=== PATIENT | male | born 1980 | race Caucasian/White ===

== ENCOUNTER 2020-06-14 16:53 | Outpatient (REF) | payer MEDICARE, MEDICAID, SELFPAY | END 2020-06-14 16:54 | disposition home or self-care (01) | LOC: HO.LAB 16:53 | PROVIDERS: Visit Provider Internal Medicine | DX: Z20.828 Contact with and (suspected) exposure to other viral communicable diseases (principal) | CPT/HCPCS: U0003 ==

== ENCOUNTER 2020-08-08 15:57 | Emergency (ER) | payer MEDICARE, MEDICAID, SELFPAY ==
--- NOTE | 2020-08-08 16:01 | PC.NURSE ---
pt from [facility]way, worker is with him and will need to be in room with patient.
--- NOTE | 2020-08-08 17:13 | PC.NURSE ---
[employer] with patient asked if he could take the patient to get dinner at a restaurant for something to do and come back and keep place in line instead of sitting in the ED waiting room waiting, this nurse told the worker that he could not leave the hospital to do this that he would have to re-check in. It was noted a short time later that the patient and caser shoe parts had left the waiting room.
== END 2020-08-08 18:13 | disposition left against medical advice (07) ==
PROVIDERS: Emergency Provider Emergency Medicine
DX: T76.21XA Adult sexual abuse, suspected, initial encounter (principal); X58.XXXA Exposure to other specified factors, initial encounter
CPT/HCPCS: 99281

== ENCOUNTER 2021-10-13 08:56 | Outpatient (REF) | payer MEDICARE, MEDICAID, SELFPAY ==
[2021-10-13 11:29] LABS: MANUAL DIFF FLAG NO
[2021-10-13 11:38] LABS: Basophils Percent Auto 0.4 % (0-2); Eosinophils Absolute Auto 0.1 X10*3/uL (0.0-0.4); Eosinophils Percent Auto 1.3 % (0-4); Hematocrit 44.6 % (42.0-52.0); Hemoglobin 14.7 g/dl (14.0-18.0); Imm Gran Abs Auto 0.02 X10*3/uL (0.00-0.03); Imm Gran Pct Auto 0.4 % (0.0-0.4); Lymphocytes Absolute Auto 1.5 X10*3/uL (1.2-4.9); Lymphocytes Percent Auto 27.3 % (20-40); Mean Corpuscular Hemoglobin 30.8 pg (27.0-33.0); Mean Corpuscular Volume 93.3 fL (80.0-98.0); Mean Platelet Volume 9.9 fL (9.4-12.4); Monocytes Absolute Auto 0.4 X10*3/uL (0.1-1.2); Neutrophils Absolute Auto 3.5 x10*3/uL (2.0-8.3); Neutrophils Percent Auto 62.6 % (45-73); Platelet Count 227 X10*3/uL (160-400); Red Blood Count 4.78 X10*6/uL (4.60-5.80); Red Cell Distribution Width 12.9 % (11.0-16.0); White Blood Count 5.5 X10*3/uL (4.8-10.8)
[2021-10-13 12:07] LABS: Estimated Average Glucose 100 mg/dL; Hemoglobin A1c % 5.1 %
[2021-10-13 12:09] LABS: Alanine Aminotransferase 11 U/L (0-40); Albumin Level 4.3 g/dL (3.5-5.0); Alkaline Phosphatase 119 U/L (39-117); Anion Gap 10 (12-20); Aspartate Amino Transferase 13 U/L (5-37); Bilirubin Total 0.4 mg/dL (0.0-1.0); Blood Urea Nitrogen 15 mg/dL (9-16); Calcium 9.4 mg/dL (8.4-10.2); Carbon Dioxide 28 mmol/L (22-29); Chloride 104 mmol/L (96-108); Estimated Glomerular Filt Rate > 60; Glucose Random 110 mg/dL (60-115); Potassium 4.3 mmol/L (3.3-5.1); Sodium 138 mmol/L (135-145)
[2021-10-13 12:11] LABS: TSH reflex Free T4 1.94 uIU/mL (0.32-4.0)
[2021-10-13 12:17] LABS: Vitamin B12 281 pg/mL (200-900)
[2021-10-14 05:32] LABS: LDL Cholesterol Direct 105 mg/dL (<100)
[2021-10-17 07:07] LABS: Vitamin D 25-OH, D2 <4 ng/mL; Vitamin D 25-OH, D3 18 ng/mL; Vitamin D 25-OH, Total 18 ng/mL (30-100)
== END 2021-10-13 08:57 | disposition home or self-care (01) ==
LOC: HO.HMGCLDS 08:56
PROVIDERS: Visit Provider Internal Medicine
DX: Z13.89 Encounter for screening for other disorder (principal)
CPT/HCPCS: 36415; 80053; 82306; 82607; 83036; 83721; 84443; 85025

== ENCOUNTER 2021-10-13 09:28 | Emergency (ER) | payer MEDICARE, MEDICAID, SELFPAY ==
[2021-10-13 09:29] VITALS: BP 129/88; PULSE 66; RESP 16; TEMP 35.9; O2SAT 100; BMI 22.8
--- NOTE | 2021-10-13 09:46 | ED_ITS ---
HPI - Psych General Chief Complaint: Psychiatric Symptoms Stated Complaint: Crisis Time Seen by Provider: 10/13/21 09:43 Source: patient Mode of arrival: ambulatory Limitations: no limitations History of Present Illness HPI Narrative: aunt reported not taking care of himself and then told triage that he is having innapropriate behaviors with young females complaint: feels depressed Onset (ago): month(s) Duration: getting worse History of same: Yes Relieving factors: none Exacerbating factors: none Associated psychiatric symptoms: depression Associated symptoms: denies other symptoms Treatments prior to arrival: none Related Data Previous Rx's Medication Instructions Recorded sertraline 25 mg tablet (Zoloft) 25 mg PO DAILY 90 Days #90 tab 10/13/21 Allergies Allergy/AdvReac Type Severity Reaction Status Date / Time bee pollen [BEE STINGS] Allergy Mild SWELLING Verified 10/13/21 08:17 pollen Allergy Unknown Unknown Uncoded 10/13/21 08:17 Review of Systems Review of Systems: Constitutional : No Fever, No Chills ENT/Mouth : No Ear Pain, No Nasal Congestion, No sore throat Eyes: No Eye Pain, No Swelling, No Redness Cardiovascular : No Chest Pain, No SOB Respiratory : No Cough, No Sputum, No Dyspnea Gastrointestinal : No Nausea, No Vomiting, No Diarrhea, No Hematochezia, No Melena Genitourinary : No Dysuria, No Urinary Frequency, No Hematuria Musculoskeletal : No Myalgias Skin : No Skin Lesions, No rash Neuro : No Weakness, No Numbness, No Paresthesias, No Dizziness, No Headache Psych : positive Anxiety, positive Depression, no SI/HI Heme/Lymph: No Lymphadenopathy Endocrine : No Polyuria, No Polydipsia All other systems reviewed and are negative [facility] Past Medical History Medical History Asthma Bipolar 1 disorder Depression Schizophrenia Smoker Surgical History History of foot surgery Family History Family History Father No problems noted. Mother No problems noted. Brother No problems noted. Sister No problems noted. Sister No problems noted. Sister No problems noted. Sister No problems noted. Other Substance use disorder Social History Social History Housing: House Alcohol intake: current Alcohol intake frequency: a few times a month Alcohol type: beer Patient Tobacco Use Status: Former Tobacco user Quit Date: 2019 Tobacco use type: Cigarette Use of substances other than those prescribed or required for medical reasons: No Advance Directives: No Advance Directives Information Provided: Yes Current occupational status: unemployed Physical Exam Vital Signs: Vital Signs: Last Vital Signs Temp 96.7 F L 10/13/21 09:29 Pulse 66 10/13/21 09:29 Resp 16 10/13/21 09:29 BP 129/88 10/13/21 09:29 Pulse Ox 100 10/13/21 09:29 BMI result Body Mass Index 22.8 Appearance: Alert. Oriented X3. No acute distress. Flat affect, withdrawn Eyes: Pupils equal, round and reactive to light. ENT: Pharynx normal. Neck: Normal inspection. Neck supple. CVS: Normal heart rate and rhythm. Pulses normal. Respiratory: No respiratory distress. Breath sounds normal. Abdomen: Soft and non-tender. Skin: Skin warm and dry. Normal skin color. Normal skin turgor. Extremities: No lower extremity edema. No calf ttp Neuro: Oriented X 3. No motor deficit. No sensory deficit. CN2-12 intact Course Course Course Narrative: Physician observation started at 1010am. Patient placed in physician observation because the patient needed more time for N to assess the need for inpatient psych admission. At the time observation was started the patient's vitals were stable, patient is alert and oriented but withdrawn, Neuro: nonfocal, CV RRR, Lungs clear Physician observation ended at 1250pm Patient seen and cleared by crisis. Plan is to follow up closely in urgent care follow up NAD, lungs clear, CV RRR, Abd nontender, Neuro intact. Disposition is for home. MDM - Psych MDM Narrative Medical decision making narrative: 41 yo male with hx of asthma, depression here with increased depression not taking care of himself, he is very withdrawn with me has no other complaints and not forthcoming. At this time labs and BHN consult ordered Lab Data Result diagrams: 10/13/21 10:02 10/13/21 10:02 Labs: Lab Results 10/13/21 10/13/21 10/13/21 Range/Units 09:58 10:02 10:02 WBC 5.6 (4.8-10.8) X10*3/uL RBC 4.67 (4.60-5.80) X10*6/uL Hgb 14.5 (14.0-18.0) g/dl Hct 43.2 (42.0-52.0) % MCV 92.5 (80.0-98.0) fL MCH 31.0 (27.0-33.0) pg MCHC 33.6 (31.0-36.0) g/dl RDW 13.0 (11.0-16.0) % Plt Count 215 (160-400) X10*3/uL MPV 9.2 L (9.4-12.4) fL Immature Gran % (Auto) 0.2 (0.0-0.4) % Neut % (Auto) 64.6 (45-73) % Lymph % (Auto) 25.4 (20-40) % [place] % (Auto) 8.4 (2-11) % Eos % (Auto) 0.9 (0-4) % Baso % (Auto) 0.5 (0-2) % Lymph # (Auto) 1.4 (1.2-4.9) X10*3/uL [place] # (Auto) 0.5 (0.1-1.2) X10*3/uL Eos # (Auto) 0.1 (0.0-0.4) X10*3/uL Baso # (Auto) 0.0 (0.0-0.2) X10*3/uL Abs Immat Gran (auto) 0.01 (0.00-0.03) X10*3/uL Absolute Neuts (auto) 3.6 (2.0-8.3) x10*3/uL Absolute Nucleated RBC 0.000 (0.0-0.012) X10*3/uL Nucleated RBC % (auto) 0.0 (0.0-0.2) /100WBC Sodium 138 (135-145) mmol/L Potassium 4.2 (3.3-5.1) mmol/L Chloride 104 (96-108) mmol/L Carbon Dioxide 28 (22-29) mmol/L Anion Gap 10 L (12-20) BUN 14 (9-16) mg/dL Creatinine 0.81 (0.5-1.4) mg/dL Estim Creat Clear Calc 114.4 Estimated GFR > 60 Random Glucose 115 (60-115) mg/dL Calcium 9.6 (8.4-10.2) mg/dL Total Bilirubin 0.5 (0.0-1.0) mg/dL Direct Bilirubin 0.2 (0.0-0.5) mg/dL AST 13 (5-37) U/L ALT 11 (0-40) U/L Alkaline Phosphatase 122 H (39-117) U/L Total Protein 7.2 (6.5-8.0) g/dL Albumin 4.4 (3.5-5.0) g/dL Ethyl Alcohol mg/dL COVID-19 (TONNY) Negative (Negative) COVID-19 Clin Com See Note 10/13/21 Range/Units 10:02 WBC (4.8-10.8) X10*3/uL RBC (4.60-5.80) X10*6/uL Hgb (14.0-18.0) g/dl Hct (42.0-52.0) % MCV (80.0-98.0) fL MCH (27.0-33.0) pg MCHC (31.0-36.0) g/dl RDW (11.0-16.0) % Plt Count (160-400) X10*3/uL MPV (9.4-12.4) fL Immature Gran % (Auto) (0.0-0.4) % Neut % (Auto) (45-73) % Lymph % (Auto) (20-40) % [place] % (Auto) (2-11) % Eos % (Auto) (0-4) % Baso % (Auto) (0-2) % Lymph # (Auto) (1.2-4.9) X10*3/uL [place] # (Auto) (0.1-1.2) X10*3/uL Eos # (Auto) (0.0-0.4) X10*3/uL Baso # (Auto) (0.0-0.2) X10*3/uL Abs Immat Gran (auto) (0.00-0.03) X10*3/uL Absolute Neuts (auto) (2.0-8.3) x10*3/uL Absolute Nucleated RBC (0.0-0.012) X10*3/uL Nucleated RBC % (auto) (0.0-0.2) /100WBC Sodium (135-145) mmol/L Potassium (3.3-5.1) mmol/L Chloride (96-108) mmol/L Carbon Dioxide (22-29) mmol/L Anion Gap (12-20) BUN (9-16) mg/dL Creatinine (0.5-1.4) mg/dL Estim Creat Clear Calc Estimated GFR Random Glucose (60-115) mg/dL Calcium (8.4-10.2) mg/dL Total Bilirubin (0.0-1.0) mg/dL Direct Bilirubin (0.0-0.5) mg/dL AST (5-37) U/L ALT (0-40) U/L Alkaline Phosphatase (39-117) U/L Total Protein (6.5-8.0) g/dL Albumin (3.5-5.0) g/dL Ethyl Alcohol < 10 mg/dL COVID-19 (TONNY) (Negative) COVID-19 Clin Com Discharge Plan Discharge Clinical Impression: Depression Patient Disposition: Home, Self-Care Instructions: Depression (ED) Additional Instructions: return to ED for any worsening symptoms or concerns BHN will be in contact to aid in urgent care follow up Prescriptions: No Action sertraline [Zoloft] 25 mg tablet 25 mg PO DAILY 90 Days Qty: 90 0RF
[2021-10-13 10:06] LABS: MANUAL DIFF FLAG NO
[2021-10-13 10:12] LABS: Basophils Percent Auto 0.5 % (0-2); Eosinophils Absolute Auto 0.1 X10*3/uL (0.0-0.4); Eosinophils Percent Auto 0.9 % (0-4); Hematocrit 43.2 % (42.0-52.0); Hemoglobin 14.5 g/dl (14.0-18.0); Imm Gran Abs Auto 0.01 X10*3/uL (0.00-0.03); Imm Gran Pct Auto 0.2 % (0.0-0.4); Lymphocytes Absolute Auto 1.4 X10*3/uL (1.2-4.9); Lymphocytes Percent Auto 25.4 % (20-40); Mean Corpuscular HGB Conc 33.6 g/dl (31.0-36.0); Mean Corpuscular Volume 92.5 fL (80.0-98.0); Mean Platelet Volume 9.2 fL (9.4-12.4); Monocytes Absolute Auto 0.5 X10*3/uL (0.1-1.2); Monocytes Percent Auto 8.4 % (2-11); Neutrophils Absolute Auto 3.6 x10*3/uL (2.0-8.3); Neutrophils Percent Auto 64.6 % (45-73); Platelet Count 215 X10*3/uL (160-400); Red Blood Count 4.67 X10*6/uL (4.60-5.80); White Blood Count 5.6 X10*3/uL (4.8-10.8)
[2021-10-13 10:23] LABS: Alanine Aminotransferase 11 U/L (0-40); Albumin Level 4.4 g/dL (3.5-5.0); Alkaline Phosphatase 122 U/L (39-117); Anion Gap 10 (12-20); Aspartate Amino Transferase 13 U/L (5-37); Bilirubin Direct 0.2 mg/dL (0.0-0.5); Bilirubin Total 0.5 mg/dL (0.0-1.0); Blood Urea Nitrogen 14 mg/dL (9-16); Calcium 9.6 mg/dL (8.4-10.2); Carbon Dioxide 28 mmol/L (22-29); Chloride 104 mmol/L (96-108); Creatinine Clr Calc Pharmacy 114.4; Estimated Glomerular Filt Rate > 60; Glucose Random 115 mg/dL (60-115); Potassium 4.2 mmol/L (3.3-5.1); Sodium 138 mmol/L (135-145); Total Protein 7.2 g/dL (6.5-8.0)
[2021-10-13 10:24] LABS: Ethanol < 10 mg/dL
[2021-10-13 10:43] LABS: COVID-19 Test Negative (Negative); IDNOW Serial# 16C4AD1C
--- NOTE | 2021-10-13 10:59 | PC.NURSE ---
pt brought to ed by his aunt who is his legal guardian to be evaluated for an increase in depressive behaviors. his aunt reports that pt recently started refusing to take his meds, refusing to shower/groom himself, refusing meals, and increased absences from work. she states he has done this in the past but it has never lasted this long. pt denies SI/HI. pt alert and oriented, denies pain, cooperative. pt currently in his room with aunt at his bedside. N consult submitted. will continue to monitor.
--- NOTE | 2021-10-13 11:59 | PC.NURSE ---
NIKKI clinician current in room with pt. Aunt waiting outside of the room. will follow-up.
--- NOTE | 2021-10-13 16:03 | PC.NURSE ---
AUNT OF PATIENT DUANE BERGERON [phone] WAS CONTACTED TO BE NOTIFIED THAT PATIENT WAS BEING DISCHARGED. PT'S AUNT ANSWERED BUT IS AT AN APPOINTMENT WITH THE FAMILY PET AT THIS TIME. AUNT STATED THAT ONCE APPOINTMENT WAS OVER SHE WOULD COME TO [employer] SPECIALIST PATIENT.
--- NOTE | 2021-10-13 17:53 | PC.NURSE ---
LEFT MESSAGE FOR AUNT TO COME AND PICK JOB UP
== END 2021-10-13 19:59 | disposition home or self-care (01) ==
PROVIDERS: Emergency Provider Emergency Medicine; PCP Internal Medicine
DX: F33.1 Major depressive disorder, recurrent, moderate (principal); Z87.891 Personal history of nicotine dependence; Z20.822 Contact with and (suspected) exposure to COVID-19; Z79.899 Other long term (current) drug therapy
CPT/HCPCS: 36415; 80048; 80053; 80076; 82077; 82306; 82607; 83036; 83721; 84443; 85025; 87635; 99285

== ENCOUNTER 2024-02-07 10:47 | Outpatient (AMB) | payer MEDICARE, MEDICAID, SELFPAY ==
--- NOTE | 2024-02-07 10:50 | A.OFFPC_ITS ---
Intake Visit Reasons: SWV Allergies bee pollen [BEE STINGS] Allergy (Mild, Verified 01/30/23 11:05) SWELLING pollen Allergy (Unknown, Uncoded 10/13/21 08:17) Unknown Tobacco use date assessed: 10/13/21 [facility] Medical History Asthma Bipolar 1 disorder Depression Schizophrenia Smoker Surgical History History of foot surgery Family History Father No problems noted. Mother No problems noted. Brother No problems noted. Sister No problems noted. Sister No problems noted. Sister No problems noted. Sister No problems noted. Other Substance use disorder Social History Housing: House Alcohol intake: current Alcohol intake frequency: a few times a month Alcohol type: beer Patient Tobacco Use Status: Former Tobacco user Tobacco use type: Cigarette Current occupational status: unemployed Physical exam (Primary Care) Tobacco/Smoking Status: Tobacco use Status Tobacco use date assessed 10/13/21 10/13/21 08:23 Patient Tobacco Use Status Former Tobacco user 10/13/21 10:39 Tobacco use type Cigarette 10/13/21 08:23 Coding
[2024-02-07 10:52] VITALS: BP 118/82; PULSE 81; O2SAT 98; BMI 31.0
--- NOTE | 2024-02-07 10:52 | A.OFFVIS_ITS ---
Intake Vital Signs 02/07/24 10:52 Height 5 ft 7 in Weight 198 lb BMI 31.0 BP 118/82 Blood Pressure Location Rt brachial Position Sitting Pulse 81 Pulse Source Pulse Oximeter Pulse Oximetry (%) 98 Oxygen Delivery Method Room Air Intake Visit Reasons: SWV Allergies bee pollen [BEE STINGS] Allergy (Mild, Verified 02/07/24 10:53) SWELLING pollen Allergy (Unknown, Uncoded 02/07/24 10:53) Unknown Medication List - Last Reconciled 02/07/24 by Harman Lundberg MD carbamide peroxide 6.5% (Debrox) 5 drps otic (ears) DAILY 4 days hydroxyzine HCl 50 mg PO BEDTIME risperidone 0.5 mg PO BID sertraline (Zoloft) 25 mg PO DAILY 90 days Do you need a note to return to daycare/school/sports/work: No HPI SWV HPI0 Details Patient is a 43-year-old gentleman who came in today for Medicare wellness visit and regular follow-up Patient continued to smoke half a pack per day he has started having smoker's cough now Over the weekend he also smoke a lot of marijuana as per his foster care member who is here with the patient Patient have a history of psychiatric illness he is currently seeing a psychiatrist and is taking medications through them Has gained weight as well his BMI is now 31.0 , I would recommend to start exercising and control the diet But he does not want to go to a gym Last time he had labs his alkaline phosphatase was elevated we will be repeating labs again I would recommend for him to at least cut down on smoking. HPI Comments History of Present Illness Details AWV Medical/social history reviewed Past medical history reviewed [place] of care / care team list updated Surgical/ hospitalization history reviewed Current medications including OTC and supplements reviewed Family history reviewed Tobacco controlled form updated Alcohol use form updated Illicit drug use in social history reviewed Current diagnosis of depression ?screening updated Appropriate PHQ 2/PHQ-9 completed . Vital signs reviewed Alcohol tobacco drug use reviewed and discussed . MMSE completed . ? Fall risk: ?Assessed Fall history: ?None Have you had any falls with injury in the past year?? No Have you had 2 or more falls in the past year?? No Fall risk assessment completed Home safety discussed with the patient Functional ability assessed and discussed and documented Activities of daily living reviewed and appropriate actions taken . HRA filled out by the patient and reviewed by provider and scanned . Appropriate written screening schedule established . Any health advise needed provided . Advance care planning discussed with the patient , necessary paperwork filled Examination IPPE/AWE: Balance intact Romberg intact Tandem walk intact walk-in turn intact rise from sit to stand intact . ?Hearing ?whisper test pass . Medication list reviewed, patient is stable on medications All other providers patient is seeing discussed and noted . [facility] Medical History Depression Bipolar 1 disorder Schizophrenia Smoker Asthma Surgical History History of foot surgery Family History Father No problems noted. Mother No problems noted. Brother No problems noted. Sister No problems noted. Sister No problems noted. Sister No problems noted. Sister No problems noted. Other Substance use disorder Social History Housing: House Alcohol intake: current Alcohol intake frequency: a few times a month Alcohol type: beer Patient Tobacco Use Status: Former Tobacco user Tobacco use type: Cigarette Current occupational status: unemployed Questionnaire Medicare Wellness Checkup What [age] your [age] 65-69 (43) What gender do you identify with?: male During the past 4 weeks, how much have you been bothered by emotional problems such as feeling anxious, depressed, irritable, sad or downhearted, and blue?: not at all During the past 4 weeks, has your physical & emotional health limited your social activities with family, friends, neighbors, or groups?: not at all During the past 4 weeks, how much bodily pain have you generally had?: no pain During the past 4 weeks, was someone available to help you if you needed & wanted help?: yes, as much as I wanted During the past 4 weeks, what was the hardest physical activity you could do for at least 2 minutes?: moderate Can you get to places out of walking distance without help? (For eg., can you travel alone on buses, taxis or drive your car?): Yes Can you go shopping for groceries or clothes without someone's help?: No Can you prepare your own meals?: Yes Can you do your housework without help?: No Because of any health problems, do you need the help of another person with your personal care needs such as eating, bathing, dressing or getting around the house?: No Can you handle your own money without help?: No During the past 4 weeks, how would you rate your health in general?: excellent During the past 4 weeks how have things been going for you?: very well; could hardly better Are you having difficulties driving your car?: not applicable, I don't use a car Do you always fasten your seat belt when you are in a car?: yes, usually During past 4 weeks, have you been bothered by the following: never: Falling or dizzy when standing up, Sexual problems?, Trouble eating well?, Problems using the telephone? and Tiredness or fatigue? and always: Teeth or denture problems? Have you fallen 2 or more times in the past year?: No Are you afraid of falling?: No Are you a smoker?: yes, but I'm not ready to quit During the past 4 weeks, how many drinks of wine, beer, or other alcoholic beverages did you have?: 1 drink or less per week Do you exercise for about 20 minutes 3 or more times a week?: no, I usually do not exercise this much Have you been given information to help with the following?: yes: Hazards in your house that might hurt you? and yes: Keeping track of your medications? How often do you have trouble taking medicines the way you have been told to take them?: I always take medicine as prescribed How confident are you that you can control & manage most of your health problems?: very confident What is your race?: White Mini Mental State Exam (MMSE) Orientation What is the (year) (season) (date) (day) (month)?: year, season, date, day and month Where are we (state) (county) (town or city) (hospital) (floor)?: state, county, town or city, hospital/clinic and floor Score Score: 10 Activity of Daily Living Bathing - sponge bath, tub bath or shower: receives no assistance (gets in/out by self, if usual bathing means Dressing - getting clothes from closets & drawers, including inner/outer garments & fasteners.: gets clothes & gets completely dressed without help Toileting - going to the 'toilet room' for urine/bowel elimination & cleaning self/arranging clothes: goes to toilet room, cleans self, arranges clothes without help Transfer: moves in & out of bed and chair without help (may use support object) Continence: controls urination/bowel movements completely by self Feeding: feeds self without help Total Score: 0 Information obtained from: patient Using telephone: independent Traveling: dependent Shopping: dependent Preparing meals: needs assistance Housework: needs assistance Taking medicine: dependent Managing money: dependent PHQ-9 Over the last 2 weeks, how often have you been bothered by any of the following problems? 1. Little interest or pleasure in doing things: several days 2. Feeling down, depressed, or hopeless: not at all 3. Trouble falling or staying asleep, or sleeping too much: not at all 4. Feeling tired or having little energy: several days 5. Poor appetite or overeating: not at all 6. Feeling bad about yourself - or that you are a failure or have let yourself or your family down: not at all 7. Trouble concentrating on things, such as reading the newspaper or watching television: not at all 8. Moving or speaking so slowly that other people could have noticed. Or the opposite - being so fidgety or restless that you have been moving around a lot more than usual: not at all 9. Thoughts that you would be better off or of hurting yourself in some way: not at all Total score: 2 Depression Screening Interpretation: Negative Depression Screening Done: Yes 80155 - PHQ-9 Billing: Yes Source: Developed by Drs. Mac Alvarenga, Roopa Gay, Callum Shelton and colleagues, with an educational kasey from [employer]. Review of Systems Const Denies chills and Denies fever(s) ENT Denies epistaxis and Denies nasal discharge Card Denies chest pain Resp Denies hemoptysis GI Denies diarrhea and Denies nausea Skin/Breast Denies rash Neuro Reports no additional complaints Psych Reports no additional complaints Endo Reports no additional complaints Physical Exam Vital Signs: Last Vital Signs Pulse 81 02/07/24 10:52 BP 118/82 02/07/24 10:52 Pulse Ox 98 02/07/24 10:52 Oxygen Delivery Method Room Air 02/07/24 10:52 BMI result Body Mass Index 31.0 Const General: cooperative, comfortable and no acute distress Orientation/consciousness: patient oriented x3 HEENT Head: Yes normocephalic Eyes General: appearance normal, both eyes and all related structures Neck Other: Supple Neck: Yes supple Resp Effort & Inspection: normal respiratory effort, no cough and no stridor Cardio Rhythm: regular rhythm Heart sounds: S1 normal heart sound present and S2 normal heart sound present Skin General skin exam: turgor normal Neuro Other: Motor sensory intact General: patient oriented x3, tone normal and moves all extremities Extrem Other: No lower extremity swelling. Right lower extremity: no edema Left lower extremity: no edema Psych Other: Normal effect, speech clear Assessment & Plan Assessment & Plan (1) Medicare annual wellness visit, subsequent: Code(s): Z00.00 - Encounter for general adult medical examination without abnormal findings (2) Major depression, recurrent: Code(s): F33.9 - Major depressive disorder, recurrent, unspecified Qualifiers: Active/Remission status: remission status unspecified Qualified Code(s): F33.9 - Major depressive disorder, recurrent, unspecified (3) Intermittent asthma: Code(s): J45.20 - Mild intermittent asthma, uncomplicated Qualifiers: Asthma complication type: uncomplicated Asthma severity: mild Qualified Code(s): J45.20 - Mild intermittent asthma, uncomplicated (4) LFT elevation: Code(s): R79.89 - Other specified abnormal findings of blood chemistry (5) Tobacco dependence: Code(s): F17.200 - Nicotine dependence, unspecified, uncomplicated (6) Marijuana dependence: Code(s): F12.20 - Cannabis dependence, uncomplicated (7) Obesity due to excess calories: Code(s): E66.09 - Other obesity due to excess calories Qualifiers: Body mass index: BMI 31.0-31.9 Obesity classification: adult class 1 (BMI 30 - 34.9) Serious obesity comorbidity presence: without serious comorbidity Qualified Code(s): E66.09 - Other obesity due to excess calories; Z68.31 - Body mass index [BMI] 31.0-31.9, adult Plan Patient is a 43-year-old gentleman who came in today for Medicare wellness visit and regular follow-up Patient continued to smoke half a pack per day he has started having smoker's cough now Over the weekend he also smoke a lot of marijuana as per his foster care member who is here with the patient Patient have a history of psychiatric illness he is currently seeing a psychiatrist and is taking medications through them Has gained weight as well his BMI is now 31.0 , I would recommend to start exercising and control the diet But he does not want to go to a gym Last time he had labs his alkaline phosphatase was elevated we will be repeating labs again I would recommend for him to at least cut down on smoking. Orders: Orders Complete Blood Count Auto Diff Today F33.9 - Major depressive disorder, recurrent, unspecified, J45.20 - Mild intermittent asthma, uncomplicated, R79.89 - Other specified abnormal findings of blood chemistry Comprehensive Met. Panel Today F33.9 - Major depressive disorder, recurrent, unspecified, J45.20 - Mild intermittent asthma, uncomplicated, R79.89 - Other specified abnormal findings of blood chemistry LDL Cholesterol Direct Today F33.9 - Major depressive disorder, recurrent, unspecified, J45.20 - Mild intermittent asthma, uncomplicated, R79.89 - Other specified abnormal findings of blood chemistry TSH reflex Free T4 Today F33.9 - Major depressive disorder, recurrent, unspecified, J45.20 - Mild intermittent asthma, uncomplicated, R79.89 - Other specified abnormal findings of blood chemistry Quality Reporting (2020) Depression/Bipolar (159/160/161/177) PHQ-9: Total score: 2 Coding Level of Care Code Medicare Subsequent (G0439) Est Pt Level 4 (56517) Diagnoses Medicare annual wellness visit, subsequent Z00.00 Recurrent major depressive disorder, remission status unspecified F33.9 Active/Remission status: remission status unspecified Mild intermittent asthma without complication J45.20 Asthma complication type: uncomplicated Asthma severity: mild LFT elevation R79.89 Tobacco dependence F17.200 Marijuana dependence F12.20 Class 1 obesity due to excess calories without serious comorbidity with body mass index (BMI) of 31.0 to 31.9 in adult E66.09; Z68.31 Body mass index: BMI 31.0-31.9 Obesity classification: adult class 1 (BMI 30 - 34.9) Serious obesity comorbidity presence: without serious comorbidity CPT Codes Advance Care Planning - Advance Care Planning discussion: On file, no changes ([id number]) Advance Care Planning Advance Care Planning discussion: On file, no changes
== END 2024-02-07 11:35 | disposition home or self-care (01) ==
PROVIDERS: PCP Internal Medicine; Visit Provider Internal Medicine
DX: Z00.00 Encounter for general adult medical examination without abnormal findings (principal); F33.9 Major depressive disorder, recurrent, unspecified; F12.20 Cannabis dependence, uncomplicated; E66.09 Other obesity due to excess calories; Z68.31 Body mass index [BMI] 31.0-31.9, adult; J45.20 Mild intermittent asthma, uncomplicated; R79.89 Other specified abnormal findings of blood chemistry; F17.200 Nicotine dependence, unspecified, uncomplicated
CPT/HCPCS: 1123F; G0439

== ENCOUNTER 2024-02-07 11:25 | Outpatient (REF) | payer MEDICARE, MEDICAID, SELFPAY ==
[2024-02-07 13:14] LABS: MANUAL DIFF FLAG NO
[2024-02-07 13:20] LABS: Basophils Percent Auto 0.3 % (0-2); Eosinophils Absolute Auto 0.1 X10*3/uL (0.0-0.4); Eosinophils Percent Auto 1.7 % (0-4); Hematocrit 42.7 % (42.0-52.0); Hemoglobin 14.8 g/dl (14.0-18.0); Imm Gran Abs Auto 0.02 X10*3/uL (0.00-0.03); Imm Gran Pct Auto 0.3 % (0.0-0.4); Lymphocytes Absolute Auto 2.3 X10*3/uL (1.2-4.9); Mean Corpuscular HGB Conc 34.7 g/dl (31.0-36.0); Mean Corpuscular Hemoglobin 31.3 pg (27.0-33.0); Mean Corpuscular Volume 90.3 fL (80.0-98.0); Mean Platelet Volume 9.7 fL (9.4-12.4); Monocytes Absolute Auto 0.5 X10*3/uL (0.1-1.2); Monocytes Percent Auto 7.5 % (2-11); Neutrophils Absolute Auto 3.5 x10*3/uL (2.0-8.3); Neutrophils Percent Auto 54.2 % (45-73); Platelet Count 248 X10*3/uL (160-400); Red Blood Count 4.73 X10*6/uL (4.60-5.80); Red Cell Distribution Width 12.3 % (11.0-16.0); White Blood Count 6.4 X10*3/uL (4.8-10.8)
[2024-02-07 13:43] LABS: Alanine Aminotransferase 24 U/L (0-40); Albumin Level 4.4 g/dL (3.5-5.0); Alkaline Phosphatase 128 U/L (39-117); Anion Gap 11 (12-20); Aspartate Amino Transferase 16 U/L (5-37); Bilirubin Total 0.4 mg/dL (0.0-1.0); Blood Urea Nitrogen 11 mg/dL (9-16); Calcium 9.6 mg/dL (8.4-10.2); Carbon Dioxide 26 mmol/L (22-29); Chloride 105 mmol/L (96-108); Estimated Glomerular Filt Rate > 60; Glucose Random 111 mg/dL (60-115); Potassium 3.9 mmol/L (3.3-5.1); Sodium 138 mmol/L (135-145); Total Protein 7.4 g/dL (6.5-8.0)
[2024-02-09 00:18] LABS: LDL Cholesterol Direct 156 mg/dL (<100)
== END 2024-02-07 11:26 | disposition home or self-care (01) ==
LOC: HO.HMGCLDS 11:25
PROVIDERS: PCP Internal Medicine; Visit Provider Internal Medicine
DX: F33.9 Major depressive disorder, recurrent, unspecified (principal); J45.20 Mild intermittent asthma, uncomplicated; R79.89 Other specified abnormal findings of blood chemistry
CPT/HCPCS: 36415; 80053; 83721; 84443; 85025

== ENCOUNTER → 2024-05-15 14:12 | Outpatient (BNVA) | payer MEDICARE, MEDICAID, SELFPAY | PROVIDERS: PCP Internal Medicine; Visit Provider Internal Medicine ==

== ENCOUNTER 2024-05-20 13:14 | Outpatient (AMB) | payer MEDICARE, MEDICAID, SELFPAY ==
--- NOTE | 2024-05-20 13:18 | MHC.PC.OV ---
Vital Signs 05/20/24 13:22 Height 5 ft 7 in Weight 194 lb 4 oz BMI 30.4 BP 126/78 Blood Pressure Location Rt brachial Position Sitting Pulse 88 Pulse Source Pulse Oximeter Pulse Oximetry (%) 97 Oxygen Delivery Method Room Air Intake Visit Reasons: Weight gain Allergies bee pollen [BEE STINGS] Allergy (Mild, Verified 05/15/24 14:13) SWELLING pollen Allergy (Unknown, Uncoded 02/07/24 10:53) Unknown Medication List - Last Reconciled 05/20/24 by Harman Lundberg MD carbamide peroxide 6.5% (Debrox) 5 drps otic (ears) DAILY 4 days hydroxyzine HCl 50 mg PO BEDTIME risperidone 0.5 mg PO BID sertraline (Zoloft) 25 mg PO DAILY 90 days Tobacco use date assessed: 10/13/21 HPI Weight gain HPI Details Patient is a 44-year-old gentleman came in today 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 Patient was 198 lb in January of this year and he is 194 lb now Has no complaints there is no nausea no vomiting no abdominal pain there is no constipation no shortness a breath there is no chest pain He does have family history of obesity and he is sedentary and does not exercise Couple of times a month patient is also drinking 4-6 beers at home when he goes to visit his family His obesity is mostly around his belly We talked briefly about healthy eating and emotions I will be requesting appointment with our nurse navigator for dietary teachings and calorie count for the patient He had labs January of this year his TSH level was within normal limit [facility] Medical History Depression Bipolar 1 disorder Schizophrenia Smoker Asthma Surgical History History of foot surgery Family History Father No problems noted. Mother No problems noted. Brother No problems noted. Sister No problems noted. Sister No problems noted. Sister No problems noted. Sister No problems noted. Other Substance use disorder Social History Housing: House Alcohol intake: current Alcohol intake frequency: a few times a month Alcohol type: beer Patient Tobacco Use Status: Former Tobacco user Tobacco use type: Cigarette Current occupational status: unemployed Questionnaire PHQ-9 Over the last 2 weeks, how often have you been bothered by any of the following problems? 1. Little interest or pleasure in doing things: not at all 2. Feeling down, depressed, or hopeless: not at all 3. Trouble falling or staying asleep, or sleeping too much: not at all 4. Feeling tired or having little energy: nearly every day 5. Poor appetite or overeating: not at all 6. Feeling bad about yourself - or that you are a failure or have let yourself or your family down: not at all 7. Trouble concentrating on things, such as reading the newspaper or watching television: nearly every day 8. Moving or speaking so slowly that other people could have noticed. Or the opposite - being so fidgety or restless that you have been moving around a lot more than usual: not at all 9. Thoughts that you would be better off or of hurting yourself in some way: not at all Total score: 6 Depression Screening Interpretation: Negative Depression Screening Done: Yes 98607 - PHQ-9 Billing: Yes Source: Developed by Drs. Mac Alvarenga, Roopa Gay, Callum Shelton and colleagues, with an educational kasey from [employer]. Thrive Questionnaire I am a: Parent/Caregiver What is your living situation today?: I have a steady place to live Within the past 12 months, did the food you bought not last and you didn't have the money to get more?: Never true Within the past 12 months, did you worry whether your food would run out before you got money to buy more?: Never true Do you have trouble paying for medicines?: No Do you have trouble getting transportation to medical appointments?: No Do you have trouble paying your heating and electricity bill?: No Do you have trouble taking care of your child, family member or friend?: No Do you have trouble with day-to-day activities such as bathing, preparing meals, shopping, managing finances, etc.?: No Are you interested in more education?: No Please select the resources that you would like help with: None Currently or been in a relationship where the following occur: No concerns reported THRIVE Score: 0 AUDIT C Alcohol Use Questionnaire (AUDIT-C) 1. How often do you have a drink containing alcohol?: Monthly or less 2. How many drinks containing alcohol do you have on a typical day when you are drinking?: 1 or 2 3. How often do you have six or more drinks on one occasion?: Less than monthly Total Score: 2 TALA-7 AMB Questionnaire TALA-7 Feeling nervous, anxious, or on edge: 0 = Not at all Not being able to stop or control worryin = Not at all Worrying too much about different things: 0 = Not at all Trouble relaxin = Not at all Being so restless that it is hard to sit still: 0 = Not at all Becoming easily annoyed or irritable: 0 = Not at all Feeling afraid as if something awful might happen: 0 = Not at all Total TALA-7 score (0-4 normal; 5-9 mild; 10-14 moderate; 15-21 severe): 0 Source: Developed by Drs. Mac Alvarenga, Roopa Gay, Callum Shelton and colleagues, with an educational kasey from [employer]. Review of Systems Const Denies chills and Denies fever(s) ENT Denies epistaxis and Denies nasal discharge Card Denies chest pain Resp Denies chest congestion, Denies cough and Denies hemoptysis GI Denies diarrhea and Denies nausea Skin/Breast Denies rash Neuro Reports no additional complaints Psych Reports no additional complaints Endo Reports no additional complaints Physical exam (Primary Care) Vital Signs: Last Vital Signs Pulse 88 05/20/24 13:22 BP 126/78 05/20/24 13:22 Pulse Ox 97 05/20/24 13:22 Oxygen Delivery Method Room Air 05/20/24 13:22 BMI result Body Mass Index 30.4 Tobacco/Smoking Status: Tobacco use Status Tobacco use date assessed 10/13/21 05/20/24 13:19 Patient Tobacco Use Status Former Tobacco user 05/20/24 13:19 Tobacco use type Cigarette 05/20/24 13:19 PHQ-9: PHQ-9 Score PHQ-9: Total score 6 05/20/24 13:19 Depression Screening Interpretation: Negative Currently or been in a relationship where the following occur: No concerns reported Const General: cooperative, comfortable and no acute distress Orientation/consciousness: patient oriented x3 HENMT Head: Yes normocephalic Eyes General: appearance normal, both eyes and all related structures Neck Neck: Yes supple Resp Effort & Inspection: normal respiratory effort, no cough and no stridor Cardio Rhythm: regular rhythm Heart sounds: S1 normal heart sound present and S2 normal heart sound present Skin General skin exam: turgor normal Neuro General: patient oriented x3, tone normal and moves all extremities Extrem Right lower extremity: no edema Left lower extremity: no edema Coding Level of Care Code Est Pt Level 3 (14475) Diagnoses Class 1 obesity due to excess calories without serious comorbidity with body mass index (BMI) of 31.0 to 31.9 in adult E66.09; Z68.31 Obesity classification: adult class 1 (BMI 30 - 34.9) Serious obesity comorbidity presence: without serious comorbidity Body mass index: BMI 31.0-31.9 Assessment & Plan Assessment & Plan (1) Obesity due to excess calories: Code(s): E66.09 - Other obesity due to excess calories Category: Medical Qualifiers: Obesity classification: adult class 1 (BMI 30 - 34.9) Serious obesity comorbidity presence: without serious comorbidity Body mass index: BMI 31.0-31.9 Qualified Code(s): E66.09 - Other obesity due to excess calories; Z68.31 - Body mass index [BMI] 31.0-31.9, adult Plan Patient is a 44-year-old gentleman came in today 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 Patient was 198 lb in January of this year and he is 194 lb now Has no complaints there is no nausea no vomiting no abdominal pain there is no constipation no shortness a breath there is no chest pain He does have family history of obesity and he is sedentary and does not exercise Couple of times a month patient is also drinking 4-6 beers at home when he goes to visit his family His obesity is mostly around his belly We talked briefly about healthy eating and emotions I will be requesting appointment with our nurse navigator for dietary teachings and calorie count for the patient He had labs January of this year his TSH level was within normal limit
[2024-05-20 13:22] VITALS: BP 126/78; PULSE 88; O2SAT 97; BMI 30.4
== END 2024-05-20 13:35 | disposition home or self-care (01) ==
PROVIDERS: PCP Internal Medicine; Visit Provider Internal Medicine
DX: E66.09 Other obesity due to excess calories (principal); Z68.31 Body mass index [BMI] 31.0-31.9, adult

== ENCOUNTER → 2024-05-20 13:14 | Outpatient (BNVA) | payer MEDICARE, MEDICAID, SELFPAY | PROVIDERS: PCP Internal Medicine; Visit Provider Internal Medicine | DX: E66.09 Other obesity due to excess calories (principal); Z68.31 Body mass index [BMI] 31.0-31.9, adult; Z71.3 Dietary counseling and surveillance | CPT/HCPCS: 96127; 99212 ==

== ENCOUNTER → 2024-05-26 10:28 | Outpatient (BNVA) | payer MEDICARE, MEDICAID, SELFPAY | PROVIDERS: PCP Internal Medicine ==

== ENCOUNTER 2025-03-02 10:34 | Outpatient (AMB) | payer MEDICARE, MEDICAID, SELFPAY ==
[2025-03-02 10:35] VITALS: BP 124/76; PULSE 60; O2SAT 97; BMI 29.3
--- NOTE | 2025-03-02 10:35 | AM.OFFVISMDC ---
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 - There are no reported new complaints or changes since the previous visit. - The patient continues to experience asthma, although it is reported to be currently well-controlled. - The patient has a history of smoking one pack of cigarettes per day. He acknowledges awareness of the health and financial implications but is not interested in cessation at this time. - The patient has expressed an interest in obtaining a medical marijuana license for mood elevation. - Past blood work from the previous year was reviewed, showing normal CBC, electrolytes, kidney functions, liver enzymes stable alkaline phosphatase is elevated, and thyroid function. LDL was reported as 156 mg/dL. Medical History: - Asthma - Psychiatric treatment (medications managed by psychiatry) - chronic alkaline phosphatase elevation - tobacco use Social History: - Works in [employer], primarily with a crew. - Smokes one pack of cigarettes per day. - Interested in medical marijuana for mood enhancement. Problem list - Asthma - Tobacco Use Disorder - Mood instability/learning disability Patient Instructions - Consider the financial implications of smoking ($13 per day equating to approximately $200 per month). - Schedule and complete routine blood tests today. - Consider discussing medical marijuana use with psychiatric provider. Review of Systems - General: No fever no chills - Neurological: No headaches no dizziness - Ear nose throat: No sore throat no hearing difficulty no ear pain - Cardiovascular: No syncope, no chest pain, no palpitations - Gastrointestinal: No nausea vomiting or diarrhea Physical Exam General: No acute distress HEENT: No acute findings Neck: Supple Respiratory system: Congestion present, but lungs are still good Cardiovascular: S1-S2 regular in rate and rhythm Gastrointestinal: No pain Extremities: No new findings DIRECTOR OF FINANCIAL PLANNING: Alert awake oriented x3 motor sensory intact Skin: Normal turgor HPI Comments History of Present Illness Details AWV Medical/social history reviewed Past medical history reviewed [place] of care / care team list updated Surgical/ hospitalization history reviewed Current medications including OTC and supplements reviewed Family history reviewed Tobacco controlled form updated Alcohol use form updated Illicit drug use in social history reviewed Current diagnosis of depression ?screening updated Appropriate PHQ 2/PHQ-9 completed . Vital signs reviewed Alcohol tobacco drug use reviewed and discussed . MMSE completed . ? Fall risk: ?Assessed Fall history: ?None Have you had any falls with injury in the past year?? No Have you had 2 or more falls in the past year?? No Fall risk assessment completed Home safety discussed with the patient Functional ability assessed and discussed and documented Activities of daily living reviewed and appropriate actions taken . HRA filled out by the patient and reviewed by provider and scanned . Appropriate written screening schedule established . Any health advise needed provided . Advance care planning discussed with the patient , necessary paperwork filled Examination IPPE/AWE: Balance intact Romberg intact Tandem walk intact walk-in turn intact rise from sit to stand intact . ?Hearing ?whisper test pass . Medication list reviewed, patient is stable on medications All other providers patient is seeing discussed and noted . [facility] Medical History Depression Bipolar 1 disorder Schizophrenia Smoker Asthma Surgical History History of foot surgery Family History Father No problems noted. Mother No problems noted. Brother No problems noted. Sister No problems noted. Sister No problems noted. Sister No problems noted. Sister No problems noted. Other Substance use disorder Social History Housing: House Alcohol intake: current Alcohol intake frequency: a few times a month Alcohol type: beer Patient Tobacco Use Status: Former Tobacco user Tobacco use type: Cigarette Current occupational status: unemployed Questionnaire Medicare Wellness Checkup What gender do you identify with?: male During the past 4 weeks, how much have you been bothered by emotional problems such as feeling anxious, depressed, irritable, sad or downhearted, and blue?: not at all During the past 4 weeks, has your physical & emotional health limited your social activities with family, friends, neighbors, or groups?: not at all During the past 4 weeks, how much bodily pain have you generally had?: no pain During the past 4 weeks, was someone available to help you if you needed & wanted help?: yes, as much as I wanted During the past 4 weeks, what was the hardest physical activity you could do for at least 2 minutes?: moderate Can you get to places out of walking distance without help? (For eg., can you travel alone on buses, taxis or drive your car?): No Can you go shopping for groceries or clothes without someone's help?: No Can you prepare your own meals?: Yes Can you do your housework without help?: No Because of any health problems, do you need the help of another person with your personal care needs such as eating, bathing, dressing or getting around the house?: No Can you handle your own money without help?: No During the past 4 weeks, how would you rate your health in general?: good During the past 4 weeks how have things been going for you?: very well; could hardly better Are you having difficulties driving your car?: not applicable, I don't use a car Do you always fasten your seat belt when you are in a car?: yes, usually During past 4 weeks, have you been bothered by the following: never: Falling or dizzy when standing up, Sexual problems?, Trouble eating well?, Problems using the telephone? and Tiredness or fatigue? and sometimes: Teeth or denture problems? Have you fallen 2 or more times in the past year?: No Are you afraid of falling?: No Are you a smoker?: yes, but I'm not ready to quit During the past 4 weeks, how many drinks of wine, beer, or other alcoholic beverages did you have?: 1 drink or less per week Do you exercise for about 20 minutes 3 or more times a week?: no, I usually do not exercise this much Have you been given information to help with the following?: yes: Hazards in your house that might hurt you? and yes: Keeping track of your medications? How often do you have trouble taking medicines the way you have been told to take them?: I always take medicine as prescribed How confident are you that you can control & manage most of your health problems?: not very confident What is your race?: White Mini Mental State Exam (MMSE) Orientation What is the (year) (season) (date) (day) (month)?: year, season, date, day and month Where are we (state) (county) (town or city) (hospital) (floor)?: state, county, town or city, hospital/clinic and floor Score Score: 10 Activity of Daily Living Bathing - sponge bath, tub bath or shower: receives no assistance (gets in/out by self, if usual bathing means Dressing - getting clothes from closets & drawers, including inner/outer garments & fasteners.: gets clothes & gets completely dressed without help Toileting - going to the 'toilet room' for urine/bowel elimination & cleaning self/arranging clothes: goes to toilet room, cleans self, arranges clothes without help Transfer: moves in & out of bed and chair without help (may use support object) Continence: controls urination/bowel movements completely by self Feeding: feeds self without help Total Score: 0 Information obtained from: patient Using telephone: independent Traveling: dependent Shopping: dependent Preparing meals: needs assistance Housework: needs assistance Taking medicine: dependent Managing money: dependent PHQ-9 Over the last 2 weeks, how often have you been bothered by any of the following problems? 1. Little interest or pleasure in doing things: not at all 2. Feeling down, depressed, or hopeless: not at all 3. Trouble falling or staying asleep, or sleeping too much: not at all 4. Feeling tired or having little energy: not at all 5. Poor appetite or overeating: not at all 6. Feeling bad about yourself - or that you are a failure or have let yourself or your family down: not at all 7. Trouble concentrating on things, such as reading the newspaper or watching television: not at all 8. Moving or speaking so slowly that other people could have noticed. Or the opposite - being so fidgety or restless that you have been moving around a lot more than usual: not at all 9. Thoughts that you would be better off or of hurting yourself in some way: not at all Total score: 0 Depression Screening Interpretation: Negative Depression Screening Done: Yes 77449 - PHQ-9 Billing: Yes Source: Developed by Drs. Mac Alvarenga, Roopa Gay, Callum Shelton and colleagues, with an educational kasey from [employer]. Physical Exam Vital Signs: Last Vital Signs Pulse 60 03/02/25 10:35 BP 124/76 03/02/25 10:35 Pulse Ox 97 03/02/25 10:35 BMI result Body Mass Index 29.3 Assessment & Plan Assessment & Plan (1) Medicare annual wellness visit, subsequent: Code(s): Z00.00 - Encounter for general adult medical examination without abnormal findings (2) Major depression, recurrent: Code(s): F33.9 - Major depressive disorder, recurrent, unspecified Qualifiers: Active/Remission status: remission status unspecified Qualified Code(s): F33.9 - Major depressive disorder, recurrent, unspecified (3) LFT elevation: Code(s): R79.89 - Other specified abnormal findings of blood chemistry (4) Tobacco dependence: Code(s): F17.200 - Nicotine dependence, unspecified, uncomplicated (5) Obesity due to excess calories: Code(s): E66.09 - Other obesity due to excess calories Qualifiers: Obesity classification: adult class 1 (BMI 30 - 34.9) Serious obesity comorbidity presence: without serious comorbidity Body mass index: BMI 31.0-31.9 Qualified Code(s): E66.09 - Other obesity due to excess calories; Z68.31 - Body mass index [BMI] 31.0-31.9, adult Plan History - The patient is a 45-year-old male presenting for an annual Medicare wellness visit. - There are no reported new complaints or changes since the previous visit. - The patient continues to experience asthma, although it is reported to be currently well-controlled. - The patient has a history of smoking one pack of cigarettes per day. He acknowledges awareness of the health and financial implications but is not interested in cessation at this time. - The patient has expressed an interest in obtaining a medical marijuana license for mood elevation. - Past blood work from the previous year was reviewed, showing normal CBC, electrolytes, kidney functions, liver enzymes stable alkaline phosphatase is elevated, and thyroid function. LDL was reported as 156 mg/dL. Medical History: - Asthma - Psychiatric treatment (medications managed by psychiatry) - chronic alkaline phosphatase elevation - tobacco use Social History: - Works in [employer], primarily with a crew. - Smokes one pack of cigarettes per day. - Interested in medical marijuana for mood enhancement. Problem list - Asthma - Tobacco Use Disorder - Mood instability/learning disability Patient Instructions - Consider the financial implications of smoking ($13 per day equating to approximately $200 per month). - Schedule and complete routine blood tests today. - Consider discussing medical marijuana use with psychiatric provider. Orders: Orders Complete Blood Count Auto Diff Today E66.09 - Other obesity due to excess calories, F17.200 - Nicotine dependence, unspecified, uncomplicated, F33.9 - Major depressive disorder, recurrent, unspecified, R79.89 - Other specified abnormal findings of blood chemistry, Z68.31 - Body mass index [BMI] 31.0-31.9, adult LDL Cholesterol Direct Today E66.09 - Other obesity due to excess calories, F17.200 - Nicotine dependence, unspecified, uncomplicated, F33.9 - Major depressive disorder, recurrent, unspecified, R79.89 - Other specified abnormal findings of blood chemistry, Z68.31 - Body mass index [BMI] 31.0-31.9, adult TSH reflex Free T4 Today E66.09 - Other obesity due to excess calories, F17.200 - Nicotine dependence, unspecified, uncomplicated, F33.9 - Major depressive disorder, recurrent, unspecified, R79.89 - Other specified abnormal findings of blood chemistry, Z68.31 - Body mass index [BMI] 31.0-31.9, adult Comprehensive Met. Panel Today E66.09 - Other obesity due to excess calories, F17.200 - Nicotine dependence, unspecified, uncomplicated, F33.9 - Major depressive disorder, recurrent, unspecified, R79.89 - Other specified abnormal findings of blood chemistry, Z68.31 - Body mass index [BMI] 31.0-31.9, adult Vitamin D 25-OH (D2 and D3) Today E66.09 - Other obesity due to excess calories, F17.200 - Nicotine dependence, unspecified, uncomplicated, F33.9 - Major depressive disorder, recurrent, unspecified, R79.89 - Other specified abnormal findings of blood chemistry, Z68.31 - Body mass index [BMI] 31.0-31.9, adult Quality Reporting (2019) Depression/Bipolar (159/160/161/177) PHQ-9: Total score: 0 Coding Level of Care Code Medicare Subsequent (G0439) Est Pt Level 3 (03899) Diagnoses Medicare annual wellness visit, subsequent Z00.00 Recurrent major depressive disorder, remission status unspecified F33.9 Active/Remission status: remission status unspecified LFT elevation R79.89 Tobacco dependence F17.200 Class 1 obesity due to excess calories without serious comorbidity with body mass index (BMI) of 31.0 to 31.9 in adult E66.09; Z68.31 Obesity classification: adult class 1 (BMI 30 - 34.9) Serious obesity comorbidity presence: without serious comorbidity Body mass index: BMI 31.0-31.9 Additional Codes PHQ-9 - 83675 - PHQ-9 Billing: Yes ([id number])
--- OUTSIDE RECORDS SUMMARY | 2025-03-02 11:44 | XMS_ITS | Data Portability ---
Author Organization [facility] [employer], [address] Address [address] [place] [address] Assessment No assessment recorded. Plan of Treatment Reminders Order Date Submit Date Provider Last Modified By Organization Details Last Modified Time Details Appointments None record ed. Lab None record ed. Referral None record ed. Procedures None record ed. Surgeries None record ed. Imaging None record ed. Medication Orders None record ed. Patient TargetsNo targets recorded. Patient InstructionsNo instructions recorded. Reason for Referral None Reported. Problems Name Problem SNOMED Code Status Onset Date Resolution Date Notes Provider Name and Address Organization Details Recorded Time Bipolar disorder [id number] Active 023 LAURA arciniega [facility] [employer] 3 11:42:18 Problem Notes None recorded. Medical Equipment None Reported. Allergies No known drug allergies Medications Name Sig Start Date Stop Date Status Note LastModified by Organization Details LastModified Time sertraline 100 mg tablet active Not Available Not Availabl e Not Available hydroxyzine pamoate 50 mg capsule active Not Available Not Available Not Available hydroxyzine HCl 50 mg tablet active Not Available Not Available Not Available polymyxin B sulfate 10,000 unit-trimetho prim 1 mg/mL eye drops PLACE 1 DROP INTO THE LEFT EYE EVERY 6 (SIX) HOURS FOR 3 DAYS 09/26 completed Not Available Not Available Not Available Ear Drops (carbamide peroxide) 6.5 % PLACE 5 DROPS INTO EARS EVERY DAY FOR 4 DAYS 09/26 completed Not Available Not Available Not Available sertraline 50 mg tablet active Not Available Not Available No t Available risperidone 0.5 mg tablet active Not Available Not Availabl e Not Available amoxicillin 875 mg-potassium clavulanate 125 mg tablet TAKE 1 TABLET BY MOUTH TWICE A DAY FOR 7 DAYS 09/26 completed Not Available Not Available Not Available Vitals Date Recorded Body height Body mass index (BMI) Body weight Provider Name and Address Organization Details Last Updated DateTime 09/26/2022 167.64 cm 32.1 kg/m2 15389.88 g LAURA GAR PA - [facility] 09/26/2022 11:41:28 Social History Question Answer Notes LastModified by Organizat ion Details LastModified Time Tobacco Smoking Status Current Every Day Smoker LAURA arciniega PA - [facility] 09/26/2022 11:42:40 Which Illicit Or Recreational Drugs Have You Used? Marjuana Information not available 09/26/2022 Have You Recently Traveled Abroad? No Information not available 09/26/2022 Sex: Unknown Functional Status Question Answer Note LastModified by Organizat ion Details LastModified Time Do you use any illicit or recreational drugs? Yes Information not available 09/26/2022 Do you or have you ever used any other forms of tobacco or nicotine? No Information not available 09/26/2022 What is your level of alcohol consumption? None Information not available 09/26/2022 Mental Status None recorded. Family History Relationship Description Onset Age of this Age Resolved Age Notes LastModified by Organization Details LastModified Time Father No current problems or disability Not available 09/26 11:42:23 Mother No current problems or disability Not available 09/26 11:42:23 Medical History No medical history recorded. Past Encounters Encounter ID Performer Location Encounter Start Date Encounter Closed Date Diagnosis/Indication Diagnosis SNOMED-CT Code Diagnosis ICD10 Code Diagnosis [id number] [facility] [address] [address] [place] [address] 09/01/2020 18:48:48 09/01/2020 20:17:15 [id number] [place] [address] [address] [place] [address] 09/26/2022 11:30:07 09/26/2022 18:19:34 Left without being seen [id number] 9102 Z53.21 Health Concerns Section Related Observation LastModified by Organization Detai ls LastModified Time None Recorded Concern Status LastModified by Organization Details LastModified Time None Recorded Advance Directives Directive None Recorded Payers Insurance Date Sequence Insurance Name Policy Number Policy Rey Covered Member ID Rey Member ID Guarantor Name 09/26/2022 2 [place] [facility] Simone Dudley [id number] Simone Dudley 09/26/2022 1 MEDICARE B-[place]: [id number] [facility] Simone Dudley [id number] Simone Dudley 09/26/2022 2 [facility] (MEDICARE SUPPLEMENT) Simone Dudley [id number] Simone Dudley
--- OUTSIDE RECORDS SUMMARY | 2025-03-02 11:44 | XMS_ITS | Clinical Summary ---
Author Organization [facility] Address [address] [place] [id number] Phone Care Team Providers Care Fingerprint Expert Name Role Phone Harman Lundberg MD Primary Care Provider [phone] Allergies No known active allergies Medications hydrOXYzine (ATARAX) 50 MG tablet Take 50 mg by mouth. Active sertraline (ZOLOFT) 100 MG tablet Take 100 mg by mouth daily. Active Active Problems No known active problems Social History Tobacco Use Types Packs/Day Years Used Date Smoking Tobacco: Every Day Smokeless Tobacco: Never Alcohol Use Standard Drinks/Week Comments Yes 0 (1 standard drink = 0.6 oz pur e alcohol) Education Answer Date Recorded Are you interested in more education? Not on nilsa e 12/08/2022 Are you concerned about learning? Not on file 12/08/2022 No 12/08/2022 No 12/08/2022 Digital Access Answer Date Recorded No 01/06/2023 No 01/06/2023 No 01/06/2023 Reliable internet access at home? Not on file 01/06/2023 Device with a working camera? Not on file Sex and Gender Information Value Date Recorded Sex Assigned at Not on file Legal Sex Male 2:48 PM EDT Gender Identity Not on file Sexual Orientation Not on file Last Filed Vital Signs Vital Sign Reading Time Taken Comments Blood Pressure 132/78 12/02/2021 12:00 PM EDT Pulse 82 12/02/2021 12:00 PM EDT Temperature 36.5 C (97.7 F) 12/02/2021 12:00 PM EDT Respiratory Rate 16 12/02/2021 12:00 PM EDT Oxygen Saturation 98% 12/02/2021 12:00 PM EDT Inhaled Oxygen Concentration - - Weight 72.6 kg (160 lb) 12/02/2021 12:00 PM EDT Height 170.2 cm (5' 7 ) 12/02/2021 12:00 PM EDT Body Mass Index 25.06 12/02/2021 12:00 PM EDT Plan of Treatment Health Maintenance Due Date Last Done Comments Adult Td,Tdap Booster 1982 LIPID PANEL 1982 DEPRESSION SCREENING 1994 SMOKING Hx and SMOKELESS TOB ACCO SCREENING 1995 HEPATITIS C SCREENING 02/21/2000 HIV ONE-TIME SCREENING (18-6 5 YEARS) 02/21/2000 PNEUMOCOCCAL VACCINES (0-49 years) (1 of 2 - PCV) 2001 COVID-19 VACCINE (2023-2 5 season) 2024 HEPATITIS A VACCINES Aged Out No long er eligible based on patient's age to complete this topic HIB VACCINES Aged Out No longer eligi ble based on patient's age to complete this topic MENINGOCOCCAL VACCINES (ACWY) Aged Out No longer eligible based on patient's age to complete this topic MENINGOCOCCAL VACCINES (B) Aged Out N o longer eligible based on patient's age to complete this topic Medical Devices Not on file Insurance MEDICARE PART A & B [facility] MEDICARE PART A & B [address] [place], [place] [address]HEALTH MEDICARE PART A & B [place] MEDICARE PART A & [address] [place], [place] [address]HEALTH MEDICARE PART A & [place] PART A & B Member Subscriber Plan / Payer ( fective 2006-Present) Name:Simone Dudley Member ID:[id number] Relation to Subscriber:Self Name:Simone Dudley Subscriber ID:[id number] Payer ID:[id number] Group ID:Not on file Type:Medicare Address: [facility] [employer] PART A & B [address] [place], [place] [address]HEALTH MEDICARE PART A & B HEALTH MEDICARE PART A & [facility] Care Teams Fingerprint Expert Relationship Specialty Start Date End Date Harman Lundberg MD [facility] [place] [id number] PCP - General Internal Medicine 12/01/21 Additional Source Comments The information contained in this document represents components of the legal health record. It is not the complete legal health record.[facility]
== END 2025-03-02 11:03 | disposition home or self-care (01) ==
LOC: HO.HMCC 10:34
PROVIDERS: PCP Internal Medicine; Visit Provider Internal Medicine
DX: Z00.00 Encounter for general adult medical examination without abnormal findings (principal); F33.9 Major depressive disorder, recurrent, unspecified; E66.09 Other obesity due to excess calories; Z68.31 Body mass index [BMI] 31.0-31.9, adult; F17.210 Nicotine dependence, cigarettes, uncomplicated; R79.89 Other specified abnormal findings of blood chemistry

== ENCOUNTER → 2025-03-02 10:34 | Outpatient (BNVA) | payer MEDICARE, MEDICAID, SELFPAY | PROVIDERS: PCP Internal Medicine; Visit Provider Internal Medicine | DX: Z00.00 Encounter for general adult medical examination without abnormal findings (principal); F33.9 Major depressive disorder, recurrent, unspecified; R79.89 Other specified abnormal findings of blood chemistry; F17.200 Nicotine dependence, unspecified, uncomplicated; Z71.6 Tobacco abuse counseling | CPT/HCPCS: 96127; 99212 ==